=== PATIENT | male | born 1960 | race Caucasian/White ===

== ENCOUNTER 2018-06-07 00:46 | Emergency (ER) | payer MEDICAID ==
[~2018-06-07] VITALS: Ht 186.7 cm; Wt 142.3 kg
[2018-06-07 00:54] VITALS: BP 144/78
== END 2018-06-07 01:36 | disposition home or self-care (01) ==
LOC: ER 00:47
DX: S86.812A Strain of other muscle(s) and tendon(s) at lower leg level, left leg, initial encounter (principal); E78.00 Pure hypercholesterolemia, unspecified; I10 Essential (primary) hypertension; K21.9 Gastro-esophageal reflux disease without esophagitis; E11.9 Type 2 diabetes mellitus without complications; Z88.8 Allergy status to other drugs, medicaments and biological substances; Z90.49 Acquired absence of other specified parts of digestive tract; Z56.0 Unemployment, unspecified; X58.XXXA Exposure to other specified factors, initial encounter; Y93.89 Activity, other specified; Y92.89 Other specified places as the place of occurrence of the external cause; Y99.8 Other external cause status
CPT/HCPCS: 99283; A6449

== ENCOUNTER 2018-06-14 20:42 | Emergency (ER) | payer MEDICAID ==
[~2018-06-14] VITALS: Ht 188 cm; Wt 117.5 kg
[2018-06-14] MEDS ORDERED: acetaminophen 325mg tablet PO ONE (21:20)
[2018-06-14 21:35] VITALS: BP 129/77
[2018-06-14] MEDS ORDERED: HYDR-3965 PO (21:57)
== END 2018-06-14 22:54 | disposition home or self-care (01) ==
LOC: ER 20:43
DX: S86.911A Strain of unspecified muscle(s) and tendon(s) at lower leg level, right leg, initial encounter (principal); E78.00 Pure hypercholesterolemia, unspecified; I10 Essential (primary) hypertension; K21.9 Gastro-esophageal reflux disease without esophagitis; E11.9 Type 2 diabetes mellitus without complications; Z90.49 Acquired absence of other specified parts of digestive tract; Z88.8 Allergy status to other drugs, medicaments and biological substances; Z79.899 Other long term (current) drug therapy; Z56.0 Unemployment, unspecified; X58.XXXA Exposure to other specified factors, initial encounter; Y93.89 Activity, other specified; Y92.89 Other specified places as the place of occurrence of the external cause; Y99.8 Other external cause status
CPT/HCPCS: 93971; 99284

== ENCOUNTER 2018-10-27 08:05 | Inpatient (IN) | payer MEDICAID | END 2018-10-29 14:40 | disposition home or self-care (01) | LOC: ER 08:05 → ED HOLD 14:49 → ORTHO 4S 16:15 ==

== ENCOUNTER 2018-11-30 19:09 | Emergency (ER) | payer MEDICAID ==
[~2018-11-30] VITALS: Ht 185.4 cm; Wt 142.5 kg
[~2018-11-30 19:09] MED LIST: FAMO20TA8 PO; GLIP2.5T3 PO; LACT1CAP26 PO; METF-437 PO; METO25TA6 PO
[2018-11-30 20:00] LABS: BASOPHILS % (AUTO) 0.3 % (0-1); EOSINOPHILS # (AUTO) 0.1 X10'3 (0-0.9); EOSINOPHILS % (AUTO) 1.3 % (0-6); HEMATOCRIT 47.2 % (42.0-52.0); HEMOGLOBIN 16.4 g/dl (14.0-17.9); LYMPHOCYTES # (AUTO) 1.4 X10'3 (1.1-4.8); LYMPHOCYTES % (AUTO) 16.7 % (21-51); MEAN CORPUSCULAR HEMOGLOBIN 30.6 PG (27.0-31.0); MEAN CORPUSCULAR HGB CONC 34.8 g/dL (33.0-36.5); MEAN CORPUSCULAR VOLUME 88.1 FL (78-98); MEAN PLATELET VOLUME 8.9 FL (7.4-10.4); MONOCYTES # (AUTO) 0.7 X10'3 (0-0.9); MONOCYTES % (AUTO) 8.7 % (2-12); NEUTROPHILS # (AUTO) 5.9 X10'3 (1.8-7.7); PLATELET COUNT 185 X10'3 (140-440); RED BLOOD COUNT 5.35 X10'6 (4.70-6.10); RED CELL DISTRIBUTION WIDTH 13.4 % (11.5-14.5); WHITE BLOOD COUNT 8.1 X10'3 (4.5-11.0)
[2018-11-30] MEDS ORDERED: normal saline 1000ML IV soln IVB ONE (20:10)
[2018-11-30 20:11] LABS: ALANINE AMINOTRANSFERASE 43 U/L (12-78); ALBUMIN 3.7 G/DL (3.4-5.0); ALKALINE PHOSPHATASE 90 IU/L (46-116); ANION GAP 9 (8-16); ASPARTATE AMINO TRANSFERASE 16 U/L (10-37); BILIRUBIN,TOTAL 1.4 MG/DL (0.1-1.0); BLOOD UREA NITROGEN 19 MG/DL (7-18); BUN/CREATININE RATIO 15.3 (5.4-32.0); CALCIUM 8.5 MG/DL (8.5-10.1); CHLORIDE 101 MMOL/L (99-107); CREATININE 1.24 MG/DL (0.60-1.10); GLUCOSE 174 MG/DL (70-104); PROTHROMBIN TIME 10.2 SECONDS (9.0-12.0); SODIUM 134 MMOL/L (135-145); TOTAL CARBON DIOXIDE 24.1 MMOL/L (24-32); TOTAL PROTEIN 7.5 G/DL (6.4-8.2); eGFR 60 ML/MIN
[2018-11-30] MEDS ORDERED: ondansetron/PF 4mg/2ml inj IV ONE (20:15)
[2018-11-30] MEDS ORDERED: ONDA4TAB6 PO (20:45)
[2018-11-30 21:00] VITALS: BP 108/60
== END 2018-11-30 21:23 | disposition home or self-care (01) ==
LOC: ER 19:10
DX: E86.0 Dehydration (principal); R11.2 Nausea with vomiting, unspecified; R19.7 Diarrhea, unspecified; E78.00 Pure hypercholesterolemia, unspecified; I10 Essential (primary) hypertension; K21.9 Gastro-esophageal reflux disease without esophagitis; E11.9 Type 2 diabetes mellitus without complications; Z90.49 Acquired absence of other specified parts of digestive tract; Z56.0 Unemployment, unspecified; Z88.8 Allergy status to other drugs, medicaments and biological substances; Z79.899 Other long term (current) drug therapy
CPT/HCPCS: 36415; 80053; 82948; 85025; 85610; 96361; 96374; 99283; J2405; J7030

== ENCOUNTER 2019-05-24 00:21 | Emergency (ER) | payer MEDICAID ==
[~2019-05-24] VITALS: Ht 185.4 cm; Wt 145.0 kg
[~2019-05-24 00:21] MED LIST changes: +ONDA4TAB6 PO; +PANT-47 PO
[2019-05-24 00:25] VITALS: BP 172/115
[2019-05-24] MEDS ORDERED: TRAM50TA2 PO (00:45)
[2019-05-24] MEDS ORDERED: ketorolac trometh inj. 60 MG/2 ML VIAL IM ONE (00:45)
== END 2019-05-24 01:01 | disposition home or self-care (01) ==
LOC: ER 00:22
DX: G56.91 Unspecified mononeuropathy of right upper limb (principal); E11.40 Type 2 diabetes mellitus with diabetic neuropathy, unspecified; E78.00 Pure hypercholesterolemia, unspecified; I10 Essential (primary) hypertension; K21.9 Gastro-esophageal reflux disease without esophagitis; F41.9 Anxiety disorder, unspecified; F32.9 Major depressive disorder, single episode, unspecified; Z90.49 Acquired absence of other specified parts of digestive tract; Z56.0 Unemployment, unspecified; Z88.8 Allergy status to other drugs, medicaments and biological substances; Z79.84 Long term (current) use of oral hypoglycemic drugs; Z79.899 Other long term (current) drug therapy
CPT/HCPCS: 96372; 99283; J1885

== ENCOUNTER 2019-08-06 20:04 | Emergency (ER) | payer MEDICAID ==
[~2019-08-06] VITALS: Ht 185.4 cm; Wt 141.0 kg
[2019-08-06 20:16] VITALS: BP 124/85
[2019-08-06 21:16] LABS: CLARITY,URINE CLEAR (Clear); COLOR,URINE YELLOW (Yellow); GLUCOSE, URINE NEGATIVE (Neg); KETONES,URINE NEGATIVE (Neg); LEUKOCYTE ESTERASE ,URINE NEGATIVE (Neg); NITRITES, URINE NEGATIVE (Neg); OCCULT BLOOD,URINE NEGATIVE (Neg); PROTEIN,URINE NEGATIVE (Neg); UROBILINOGEN,URINE 0.2 E.U/dL (0.2-1.0)
[2019-08-06 21:18] LABS: UA COLLECTION TYPE NON-SPECIFIED
[2019-08-06 21:58] LABS: BASOPHILS % (AUTO) 0.5 % (0-1); EOSINOPHILS # (AUTO) 0.1 X10'3 (0-0.9); EOSINOPHILS % (AUTO) 1.2 % (0-6); HEMATOCRIT 43.7 % (42.0-52.0); HEMOGLOBIN 15.5 g/dl (14.0-17.9); LYMPHOCYTES # (AUTO) 1.2 X10'3 (1.1-4.8); LYMPHOCYTES % (AUTO) 18.6 % (21-51); MEAN CORPUSCULAR HEMOGLOBIN 31.7 PG (27.0-31.0); MEAN CORPUSCULAR HGB CONC 35.5 g/dL (33.0-36.5); MEAN CORPUSCULAR VOLUME 89.4 FL (78-98); MEAN PLATELET VOLUME 8.7 FL (7.4-10.4); MONOCYTES # (AUTO) 0.4 X10'3 (0-0.9); MONOCYTES % (AUTO) 6.4 % (2-12); NEUTROPHILS # (AUTO) 4.9 X10'3 (1.8-7.7); NEUTROPHILS % (AUTO) 73.3 % (42-75); PLATELET COUNT 161 X10'3 (140-440); RED BLOOD COUNT 4.89 X10'6 (4.70-6.10); RED CELL DISTRIBUTION WIDTH 13.5 % (11.5-14.5); WHITE BLOOD COUNT 6.7 X10'3 (4.5-11.0)
[2019-08-06 22:08] LABS: ALANINE AMINOTRANSFERASE 60 U/L (12-78); ALBUMIN 3.8 G/DL (3.4-5.0); ALKALINE PHOSPHATASE 115 IU/L (46-116); ANION GAP 6 (8-16); ASPARTATE AMINO TRANSFERASE 35 U/L (10-37); BILIRUBIN,TOTAL 0.9 MG/DL (0.1-1.0); BLOOD UREA NITROGEN 9 MG/DL (7-18); BUN/CREATININE RATIO 8.9 (5.4-32.0); CALCIUM 8.7 MG/DL (8.5-10.1); CHLORIDE 103 MMOL/L (99-107); CREATININE 1.01 MG/DL (0.60-1.10); GLUCOSE 137 MG/DL (70-104); POTASSIUM 3.7 MMOL/L (3.5-5.1); SODIUM 136 MMOL/L (135-145); TOTAL CARBON DIOXIDE 27.2 MMOL/L (24-32); TOTAL PROTEIN 7.7 G/DL (6.4-8.2); eGFR 76 ML/MIN
[2019-08-06] MEDS ORDERED: ketorolac tromethamine 15mg/ml inj. IM ONE (22:15)
[2019-08-06] MEDS ORDERED: AMOX500C2 PO (22:26)
[2019-08-06] MEDS ORDERED: CHLO473M3 PO (22:26)
== END 2019-08-06 22:42 | disposition home or self-care (01) ==
LOC: ER 20:05
DX: R10.31 Right lower quadrant pain (principal); R10.32 Left lower quadrant pain; K08.89 Other specified disorders of teeth and supporting structures; E66.9 Obesity, unspecified; E78.00 Pure hypercholesterolemia, unspecified; I10 Essential (primary) hypertension; K21.9 Gastro-esophageal reflux disease without esophagitis; E11.9 Type 2 diabetes mellitus without complications; Z90.49 Acquired absence of other specified parts of digestive tract; Z56.0 Unemployment, unspecified; Z79.899 Other long term (current) drug therapy; Z88.8 Allergy status to other drugs, medicaments and biological substances
CPT/HCPCS: 36415; 80053; 81003; 85025; 96372; 99283; J1885

== ENCOUNTER 2019-10-19 21:18 | Emergency (ER) | payer MEDICAID ==
[~2019-10-19] VITALS: Ht 185.4 cm; Wt 143.2 kg
[~2019-10-19 21:18] MED LIST changes: +CHLO473M3 PO
[2019-10-19 21:47] LABS: BASOPHILS % (AUTO) 0.6 % (0-1); EOSINOPHILS # (AUTO) 0.1 X10'3 (0-0.9); EOSINOPHILS % (AUTO) 1.5 % (0-6); HEMATOCRIT 44.7 % (42.0-52.0); HEMOGLOBIN 15.7 g/dl (14.0-17.9); LYMPHOCYTES # (AUTO) 2.1 X10'3 (1.1-4.8); LYMPHOCYTES % (AUTO) 28.6 % (21-51); MEAN CORPUSCULAR HEMOGLOBIN 31.3 PG (27.0-31.0); MEAN CORPUSCULAR VOLUME 89.5 FL (78-98); MEAN PLATELET VOLUME 8.8 FL (7.4-10.4); MONOCYTES # (AUTO) 0.5 X10'3 (0-0.9); MONOCYTES % (AUTO) 6.9 % (2-12); NEUTROPHILS # (AUTO) 4.5 X10'3 (1.8-7.7); NEUTROPHILS % (AUTO) 62.4 % (42-75); PLATELET COUNT 171 X10'3 (140-440); RED CELL DISTRIBUTION WIDTH 13.5 % (11.5-14.5); WHITE BLOOD COUNT 7.2 X10'3 (4.5-11.0)
[2019-10-19 21:58] LABS: ALANINE AMINOTRANSFERASE 32 U/L (12-78); ALBUMIN 3.8 G/DL (3.4-5.0); ALKALINE PHOSPHATASE 114 IU/L (46-116); ANION GAP 8 (8-16); ASPARTATE AMINO TRANSFERASE 17 U/L (10-37); BILIRUBIN,TOTAL 0.7 MG/DL (0.1-1.0); BLOOD UREA NITROGEN 15 MG/DL (7-18); BUN/CREATININE RATIO 13.6 (5.4-32.0); CALCIUM 8.8 MG/DL (8.5-10.1); CHLORIDE 104 MMOL/L (99-107); GLUCOSE 118 MG/DL (70-104); POTASSIUM 3.8 MMOL/L (3.5-5.1); SODIUM 139 MMOL/L (135-145); TOTAL CARBON DIOXIDE 27.4 MMOL/L (24-32); TOTAL PROTEIN 7.5 G/DL (6.4-8.2); eGFR 69 ML/MIN
[2019-10-20] MEDS ORDERED: OMEP20CA15 PO (02:38)
[2019-10-20] MEDS ORDERED: FAMO20TA44 PO (02:38)
[2019-10-20 05:18] VITALS: BP 125/74
== END 2019-10-20 03:05 | disposition home or self-care (01) ==
LOC: ER 21:19
DX: R10.13 Epigastric pain (principal); R07.89 Other chest pain; R06.02 Shortness of breath; E78.00 Pure hypercholesterolemia, unspecified; I10 Essential (primary) hypertension; K21.9 Gastro-esophageal reflux disease without esophagitis; E11.9 Type 2 diabetes mellitus without complications; F41.9 Anxiety disorder, unspecified; F32.9 Major depressive disorder, single episode, unspecified; Z90.49 Acquired absence of other specified parts of digestive tract; Z56.0 Unemployment, unspecified; Z88.8 Allergy status to other drugs, medicaments and biological substances; Z79.899 Other long term (current) drug therapy
CPT/HCPCS: 36415; 71045; 80053; 84484; 85025; 93005; 99284

== ENCOUNTER 2020-06-10 23:00 | Emergency (ER) | payer MEDICAID ==
[~2020-06-10] VITALS: Ht 185.4 cm; Wt 145.4 kg
[~2020-06-10 23:00] MED LIST changes: +FAMO20TA44 PO; +OMEP20CA15 PO
--- NOTE | 2020-06-10 23:20 | NUR ---
X RAY AT BEDSIDE
[2020-06-10 23:37] LABS: EOSINOPHILS # (AUTO) 0.1 X10'3 (0-0.9); EOSINOPHILS % (AUTO) 1.7 % (0-6); MEAN CORPUSCULAR HEMOGLOBIN 31.8 PG (27.0-31.0); WHITE BLOOD COUNT 6.2 X10'3 (4.5-11.0)
[2020-06-10 23:39] LABS: BASOPHILS % (AUTO) 0.4 % (0-1); HEMATOCRIT 42.3 % (42.0-52.0); LYMPHOCYTES # (AUTO) 2.1 X10'3 (1.1-4.8); LYMPHOCYTES % (AUTO) 33.4 % (21-51); MEAN CORPUSCULAR HGB CONC 35.5 g/dL (33.0-36.5); MEAN CORPUSCULAR VOLUME 89.6 FL (78-98); MEAN PLATELET VOLUME 8.5 FL (7.4-10.4); MONOCYTES # (AUTO) 0.4 X10'3 (0-0.9); MONOCYTES % (AUTO) 6.9 % (2-12); NEUTROPHILS # (AUTO) 3.6 X10'3 (1.8-7.7); NEUTROPHILS % (AUTO) 57.6 % (42-75); PLATELET COUNT 163 X10'3 (140-440); RED BLOOD COUNT 4.73 X10'6 (4.70-6.10); RED CELL DISTRIBUTION WIDTH 13.6 % (11.5-14.5)
[2020-06-10 23:57] LABS: ALANINE AMINOTRANSFERASE 64 U/L (12-78); ALBUMIN 3.8 G/DL (3.4-5.0); ALBUMIN/GLOBULIN RATIO 1.1 (1.1-1.5); ALKALINE PHOSPHATASE 112 IU/L (46-116); ANION GAP 8 (8-16); ASPARTATE AMINO TRANSFERASE 32 U/L (10-37); BILIRUBIN,TOTAL 0.8 MG/DL (0.1-1.0); BLOOD UREA NITROGEN 10 MG/DL (7-18); BUN/CREATININE RATIO 8.9 (5.4-32.0); CALCIUM 8.3 MG/DL (8.5-10.1); CHLORIDE 102 MMOL/L (99-107); CREATININE 1.12 MG/DL (0.60-1.10); GLUCOSE 153 MG/DL (70-104); POTASSIUM 3.3 MMOL/L (3.5-5.1); SODIUM 139 MMOL/L (135-145); TOTAL PROTEIN 7.3 G/DL (6.4-8.2); eGFR 67 ML/MIN
[2020-06-11] MEDS ORDERED: pantoprazole 40 MG vial IV ONE (00:10)
[2020-06-11] MEDS ORDERED: aspirin 81mg tab.chew PO ONE (00:10)
[2020-06-11] MEDS ORDERED: METF-438 PO (01:18)
[2020-06-11] MEDS ORDERED: METO50TA17 PO (01:18)
[2020-06-11] MEDS ORDERED: OMEP-50 PO (01:21)
[2020-06-11] MEDS ORDERED: HYDR25TA4 PO (01:21)
[2020-06-11 03:53] VITALS: BP 115/67
== END 2020-06-11 03:58 | disposition home or self-care (01) ==
LOC: ER 23:00
DX: R07.89 Other chest pain (principal); R10.13 Epigastric pain; R53.83 Other fatigue; E78.00 Pure hypercholesterolemia, unspecified; I10 Essential (primary) hypertension; G47.30 Sleep apnea, unspecified; K21.9 Gastro-esophageal reflux disease without esophagitis; E11.9 Type 2 diabetes mellitus without complications; F41.9 Anxiety disorder, unspecified; F32.9 Major depressive disorder, single episode, unspecified; Z90.49 Acquired absence of other specified parts of digestive tract; Z56.0 Unemployment, unspecified; Z88.8 Allergy status to other drugs, medicaments and biological substances; Z79.899 Other long term (current) drug therapy
CPT/HCPCS: 36415; 71045; 80053; 83880; 84484; 85025; 93005; 96374; 99285; C9113

== ENCOUNTER 2025-01-06 21:30 | Emergency (ER) | payer MEDICAID ==
[~2025-01-06] VITALS: Ht 188 cm; Wt 141.7 kg
[~2025-01-06 21:30] MED LIST changes: -CHLO473M3 PO; -FAMO20TA44 PO; -FAMO20TA8 PO; -GLIP2.5T3 PO; +HYDR25TA4 PO; -LACT1CAP26 PO; -METF-437 PO; +METF-438 PO; -METO25TA6 PO; +METO50TA17 PO; -OMEP20CA15 PO; -ONDA4TAB6 PO; -PANT-47 PO
[2025-01-06] MEDS: BUPIVAcaine 0.25% w/Epi /PF 30ml vial SQ ONE (22:40)
[2025-01-06] MEDS ORDERED: AMOX-580 PO (23:52)
[2025-01-07] MEDS: amox tr/potassium clavulanate 875/125mg TAB PO ONE (00:06)
[2025-01-07 00:09] VITALS: BP 189/92; PULSE 64; RESP 16; TEMP 98.6; O2SAT 96
== END 2025-01-07 00:16 | disposition home or self-care (01) ==
LOC: ER 21:31
DX: K02.9 Dental caries, unspecified (principal); E78.00 Pure hypercholesterolemia, unspecified; G47.30 Sleep apnea, unspecified; I10 Essential (primary) hypertension; F41.9 Anxiety disorder, unspecified; F32.A Depression, unspecified; K21.9 Gastro-esophageal reflux disease without esophagitis; E11.9 Type 2 diabetes mellitus without complications; Z90.49 Acquired absence of other specified parts of digestive tract; Z56.0 Unemployment, unspecified
CPT/HCPCS: 64400; 99283; 99284